=== PATIENT | female | born 1945 | race Caucasian/White ===

== ENCOUNTER → 2018-02-21 | Day surgery (SDC) | payer MEDICARE ==
[~2018-02-21] VITALS: Ht 167.6 cm; Wt 54.4 kg
[~2018-02-21] MED LIST: APRODINE PO; APRODINE TABLE1 EACH PO; ASPIR LOW81 MG PO; CILOXAN 5 ML5 ML OT; LEVOTHYROXINE50 MCG PO; ROBITUSSIN AC 110 ML PO; TESSALON PERLE100 M1 PO; TOPAMAX25 M1 PO; ULTRAM50 MG PO
--- NOTE | ~2018-02-21 | O ---
[place], [place] OPERATIVE NOTE NAME: GREGORY QUINONES UNIT #: [id number] ROOM: DOCTOR: ANTHONY LERMA MD BIRTHDATE: [birth year] DOS: 02/21/2018 PREOPERATIVE DIAGNOSIS: Cataract, left eye. POSTOPERATIVE DIAGNOSIS: Cataract, left eye. OPERATION: Extracapsular cataract extraction by phacoemulsification with posterior chamber intraocular lens implantation, left eye. ANESTHESIA: Monitored standby. OPERATIVE FINDINGS AND PROCEDURE: 2% Xylocaine topical anesthetic gel was applied to the eye in the preop area. The patient was taken to the operating room and prepped and draped in the standard fashion for sterile intraocular surgery. A time out procedure was performed verifying correct patient, correct site and corrects lens with Néstor Lerma M.D. The operating microscope was swung into position and the lid speculum was inserted. Using a Lesly paracentesis blade, a paracentesis was made through clear cornea. Viscoelastic was used to fill the anterior chamber. Using a metal keratome a 2.4 mm self-sealing clear corneal cataract incision was made temporally at the limbus. Using a pre-bent 25 gauge cystotome needle, a standard continuous curvilinear capsulorrhexis was performed. The anterior capsule was removed with forceps. The lens nucleus was hydrodissected and phacoemulsified in the posterior chamber. Cortical material was removed with the irrigation aspiration hand piece and the posterior capsule was then polished with a curet under irrigation. The posterior chamber and capsular bag were filled with viscoelastic. A posterior chamber intraocular lens manufactured by: [employer], Model #[id number], and 25.5 diopters in strength were then inserted into the posterior chamber and within the capsular bag using the lens cartridge and injector system. Viscoelastic was removed using the irrigation aspiration handpiece. The anterior chamber was filled with balanced salt solution through the paracentesis. Both the paracentesis site and cataract incisions were hydrated with BSS and verified to be water-tight and self-sealing. The incision checked to be water-tight using a Weck-Sonia sponge. The integrity of the cataract wound and ocular tension were checked. Lid speculum and drapes were removed. The patient was transferred from the operating room to the recovery room in satisfactory condition. [place], [place] OPERATIVE NOTE NAME: GREGORY QUINONES UNIT #: [id number] ROOM: DOCTOR: ANTHONY LERMA MD BIRTHDATE: [birth year] ANTHONY LERMA MD CM:OPRECORD:OPERATIVE NOTE [id number] ANTHONY LERMA MD 03/28/18 1403 interface
[2018-02-21 10:24] VITALS: BP 108/48
[2018-02-21 11:02] VITALS: BP 127/55
[2018-02-21 11:17] VITALS: BP 124/52
[2018-02-21 11:30] VITALS: BP 120/54
== END | disposition home or self-care (01) ==
LOC: SDC 02-19 14:00
DX: H25.12 Age-related nuclear cataract, left eye (principal); E07.9 Disorder of thyroid, unspecified; B19.10 Unspecified viral hepatitis B without hepatic coma; G43.909 Migraine, unspecified, not intractable, without status migrainosus; F17.210 Nicotine dependence, cigarettes, uncomplicated; Z98.51 Tubal ligation status; Z98.890 Other specified postprocedural states; Z88.0 Allergy status to penicillin; Z88.2 Allergy status to sulfonamides; Z91.018 Allergy to other foods; Z88.1 Allergy status to other antibiotic agents

== ENCOUNTER → 2018-03-21 | Day surgery (SDC) | payer MEDICARE, OTHER ==
[~2018-03-21] VITALS: Ht 167.6 cm; Wt 53.5 kg
--- NOTE | ~2018-03-21 | O ---
[place], [place] OPERATIVE NOTE NAME: GREGORY QUINONES UNIT #: [id number] ROOM: DOCTOR: ANTHONY LERMA MD BIRTHDATE: [birth year] DOS: 03/21/2018 PREOPERATIVE DIAGNOSIS: Cataract, right eye. POSTOPERATIVE DIAGNOSIS: Cataract, right eye. OPERATION: Extracapsular cataract extraction by phacoemulsification with posterior chamber intraocular lens implantation, right eye. ANESTHESIA: Monitored standby. OPERATIVE FINDINGS AND PROCEDURE: 2% Xylocaine topical anesthetic gel was applied to the eye in the preop area. The patient was taken to the operating room and prepped and draped in the standard fashion for sterile intraocular surgery. A time out procedure was performed verifying correct patient, correct site and corrects lens with Néstor Lerma M.D. The operating microscope was swung into position and the lid speculum was inserted. Using a Lesly paracentesis blade, a paracentesis was made through clear cornea. Viscoelastic was used to fill the anterior chamber. Using a metal keratome a 2.4 mm self-sealing clear corneal cataract incision was made temporally at the limbus. Using a pre-bent 25 gauge cystotome needle, a standard continuous curvilinear capsulorrhexis was performed. The anterior capsule was removed with forceps. The lens nucleus was hydrodissected and phacoemulsified in the posterior chamber. Cortical material was removed with the irrigation aspiration hand piece and the posterior capsule was then polished with a curet under irrigation. The posterior chamber and capsular bag were filled with viscoelastic. A posterior chamber intraocular lens manufactured by: [employer], Model #[id number], and 23.5 diopters in strength were then inserted into the posterior chamber and within the capsular bag using the lens cartridge and injector system. Viscoelastic was removed using the irrigation aspiration handpiece. The anterior chamber was filled with balanced salt solution through the paracentesis. Both the paracentesis site and cataract incisions were hydrated with BSS and verified to be water-tight and self-sealing. The incision checked to be water-tight using a Weck-Sonia sponge. The integrity of the cataract wound and ocular tension were checked. Lid speculum and drapes were removed. The patient was transferred from the operating room to the recovery room in satisfactory condition. [place], [place] OPERATIVE NOTE NAME: GREGORY QUINONES UNIT #: [id number] ROOM: DOCTOR: ANTHONY LERMA MD BIRTHDATE: [birth year] ANTHONY LERMA MD CM:OPRECORD:OPERATIVE NOTE [id number] ANTHONY LERMA MD 03/21/18 1455 interface
[2018-03-21 13:10] VITALS: BP 122/55
[2018-03-21 13:48] VITALS: BP 122/41
== END | disposition home or self-care (01) ==
LOC: SDC 03-15 10:15
DX: H25.811 Combined forms of age-related cataract, right eye (principal); F17.290 Nicotine dependence, other tobacco product, uncomplicated; E07.9 Disorder of thyroid, unspecified; Z88.1 Allergy status to other antibiotic agents; Z88.0 Allergy status to penicillin; Z88.2 Allergy status to sulfonamides; Z79.899 Other long term (current) drug therapy; Z98.890 Other specified postprocedural states; Z98.51 Tubal ligation status; Z91.018 Allergy to other foods; Z98.42 Cataract extraction status, left eye